=== PATIENT | male | born 1955 | race Caucasian/White ===

== ENCOUNTER 2024-07-28 12:05 | Emergency (ER) | payer MEDICARE, BC ==
[2024-07-28] MEDS: Sodium Chloride 0.9% 1,000 ML IV ONE (12:28)
[2024-07-28] MEDS: Ondansetron 4 MG/2 ML SDV IVPUSH STA (12:28)
[2024-07-28 12:55] LABS: APPEARANCE,URINE CLEAR (CLEAR); BILIRUBIN,URINE NEGATIVE (NEGATIVE); COLOR,URINE YELLOW (YELLOW); GLUCOSE,URINE NEGATIVE (NEGATIVE); KETONES,URINE 40 mg/dL (NEGATIVE); LEUKOCYTE ESTERASE,URINE NEGATIVE (NEGATIVE); NITRITE,URINE NEGATIVE (NEGATIVE); OCCULT BLOOD,URINE TRACE-INTACT (NEGATIVE); PROTEIN,URINE NEGATIVE (NEGATIVE); UROBILINOGEN,URINE 0.2 EU/dL (0.2-1.0)
[2024-07-28 12:57] LABS: BASOPHILS ABSOLUTE AUTO 0.04 10^3/uL (0.00-0.50); BASOPHILS PERCENT AUTO 0.4 % (0-1); EOSINOPHILS ABSOLUTE AUTO 0.08 10^3/uL (0.00-1.50); EOSINOPHILS PERCENT AUTO 0.9 % (0-6); HEMATOCRIT 51.6 % (42.0-52.0); HEMOGLOBIN 17.3 g/dL (14.0-18.0); IMMATURE GRAN ABSOLUTE AUTO 0.01 10^3/uL (0.00-0.49); IMMATURE GRAN PERCENT AUTO 0.1 % (0.0-4.9); LYMPHOCYTES ABSOLUTE AUTO 1.54 10^3/uL (0.60-5.00); LYMPHOCYTES PERCENT AUTO 16.5 % (24-44); MEAN CORPUSCULAR HEMOGLOBIN 30.9 pg (27.0-32.0); MEAN CORPUSCULAR HGB CONC 33.5 g/dL (32.0-36.0); MEAN CORPUSCULAR VOLUME 92.3 fL (83.0-97.0); MONOCYTES PERCENT AUTO 4.3 % (0-10); NEUTROPHILS ABSOLUTE AUTO 7.24 x10^3/uL (1.80-8.00); NEUTROPHILS PERCENT AUTO 77.8 % (41-71); PLATELET COUNT,PLT 160 10^3/uL (150-400); RED BLOOD CELL COUNT 5.59 x10^6/uL (4.50-6.00); WHITE BLOOD CELL COUNT,WBC 9.3 10^3/uL (4.0-11.0)
[2024-07-28 13:00] LABS: ALANINE AMINOTRANSFERASE,ALT 34 U/L (12-78); ALBUMIN 3.9 g/dL (3.4-5.0); ALKALINE PHOSPHATASE 70 U/L (46-116); ASPARTATE AMNIOTRANSFERASE,AST 22 U/L (15-37); BILIRUBIN TOTAL 0.8 mg/dL (0.0-1.0); BLOOD UREA NITROGEN,BUN 7 mg/dL (7-18); C-REACTIVE PROTEIN 0.74 mg/dL (<=0.50); CALCIUM 9.7 mg/dL (8.4-10.1); CARBON DIOXIDE,CO2 27 mmol/L (21-32); CHLORIDE,CL 101 mEq/L (98-106); GLUCOSE RANDOM 137 mg/dL (75-99); LIPASE 24 U/L (16-77); PROTEIN TOTAL,TP 7.2 g/dL (6.4-8.2); SODIUM,NA 138 mEq/L (136-145)
[2024-07-28 13:02] LABS: WBC,URINE NOT SEEN /HPF (0-5)
[2024-07-28 13:02] LABS: ESTIMATED GFR 82 mL/min (>=60)
[2024-07-28] MEDS: Ketorolac 30 MG/ML SDV IVPUSH ONE (13:09)
[2024-07-28] MEDS ORDERED: Iopamidol 755 Mg/ML 100 ML Bottle IVPUSH ONE (13:49)
== END 2024-07-28 15:45 | disposition home or self-care (01) ==
LOC: CC.ED 12:05 → SUPCPDRO 12:05 → CC.ED 15:45
DX: N13.2 Hydronephrosis with renal and ureteral calculous obstruction (principal); I10 Essential (primary) hypertension; F17.210 Nicotine dependence, cigarettes, uncomplicated; Z79.899 Other long term (current) drug therapy
CPT/HCPCS: 36415; 74177; 80053; 81001; 83690; 83735; 85025; 86140; 96361; 96374; 96375; 99284; J1885; J2405; J7030